=== PATIENT | female | born 1985 | race Caucasian/White ===

== ENCOUNTER 2018-04-05 10:54 | Emergency (ER) | payer OTHER ==
[~2018-04-05] VITALS: Ht 170.2 cm; Wt 63.5 kg
[~2018-04-05 10:54] MED LIST: ALBUTEROL2.5 MG/31 INH; CELEXA20 MG PO; COLACE100 MG PO; COUMADIN 4 MG TA4 M1 PO; CRUTCH1 EACH MC; DOXYCYCLINE 10100 M1 PO; ENOXAPARIN60 MG/0.1 SUBQ; HYDROCODONE-AP1 EAC6 PO; IBUPROFEN 800800 M1 PO; IUD; LEXAPRO20 MG PO; LIORESAL 10 MG10 MG PO; MEDROLDOSEPACK PO; NORCO 5-325 TA1 EACH PO; NUVARING VAGIN1 EACH VG; PERCOCET 5-3251 EACH PO; PHENERGAN 25 MG25 MG PO; ROBAXIN500 MG PO; SUMYCIN 500500 MG PO; ULTRAM 50MG TAB50 MG PO; ZOFRAN4 MG PO
[2018-04-05 11:32] LABS: ABSOLUTE LYMPHOCYTES 1.6 thou/uL (0.8-5.3); ABSOLUTE MONOCYTES 0.5 thou/uL (0.0-1.2); BASOPHILS 0.5 %; EOSINOPHILS 0.4 %; HEMATOCRIT 39.2 % (37.0-47.0); HEMOGLOBIN 13.3 gm/dL (12.0-15.0); MCH 32.6 pg (26.0-34.0); MCV 95.8 fL (80.0-100.0); MONOCYTES 8.6 %; MPV 10.6 fl. (7.2-11.1); NUCLEATED RBCS 0 /100WBC; PLATELET COUNT* 166 thou/uL (150-400); POLYS 64.5 %; RDW-CV 13.2 % (10.5-14.5); WBC 6.3 thou/uL (4.0-11.0)
[2018-04-05] MEDS ORDERED: SYNTHROID88 MCG PO (11:41)
[2018-04-05 11:49] LABS: INR 1.1; PROTIME 10.9 Seconds (9.20-11.50)
[2018-04-05] MEDS ORDERED: ONDANSETRON HCL4 M2 PO (12:03)
[2018-04-05] MEDS ORDERED: NABUMETONE 750750 M1 PO (12:03)
[2018-04-05 12:12] LABS: ALKALINE PHOSPHATASE 46 U/L (46-116); ANION GAP 11 mmol/L (7-16); CHLORIDE 106 mmol/L (98-107); CO2 24 mmol/L (21-32); POTASSIUM 3.7 mmol/L (3.5-5.1); SGOT 15 U/L (15-37); SGPT 21 U/L (30-65); SODIUM 141 mmol/L (136-145); TOTAL BILIRUBIN 0.6 mg/dL (<0.1-1.0); TOTAL PROTEIN 8.3 g/dL (6.4-8.2)
[2018-04-05 12:13] LABS: ALBUMIN 4.6 g/dL (3.4-5.0); TROPONIN-I LEVEL <0.06 ng/mL (<0.06)
[2018-04-05 12:19] LABS: BUN 12 mg/dL (7-18); CALCIUM 9.6 mg/dL (8.5-10.1); CREATININE 0.9 mg/dL (0.6-1.3); GLUCOSE 98 mg/dL (70-99)
[2018-04-05 13:07] LABS: URINE BILIRUBIN NEGATIVE (Negative); URINE BLOOD TRACE (Negative); URINE CLARITY CLEAR; URINE COLOR YELLOW; URINE GLUCOSE-RANDOM NEGATIVE (Negative); URINE KETONES 1+ (Negative); URINE LEUKOCYTES-REFLEX NEGATIVE (Negative); URINE NITRITE-REFLEX NEGATIVE (Negative); URINE PROTEIN NEGATIVE (Negative); URINE UROBILINOGEN 0.2 E.U./dl (0.2-1.0)
[2018-04-05 13:16] LABS: AMP/METHAMP Negative (Negative); BARBITURATES Negative (Negative); BENZODIAZEPINES Negative (Negative); COCAINE Negative (Negative); METHADONE Negative (Negative); OPIATES Negative (Negative); PCP Negative (Negative); THC POSITIVE (Negative)
[2018-04-05] MEDS ORDERED: ZANAFLEX4 MG PO (13:20)
[2018-04-05 13:42] VITALS: BP 136/80
--- NOTE | 2018-04-05 16:29 | EKG ---
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
== END 2018-04-05 13:43 | disposition home or self-care (01) ==
LOC: M.ERS 10:54
PROVIDERS: Nurse Practitioner Family
DX: S06.0X1A Concussion with loss of consciousness of 30 minutes or less, initial encounter (principal); S16.1XXA Strain of muscle, fascia and tendon at neck level, initial encounter; R42 Dizziness and giddiness; E03.9 Hypothyroidism, unspecified; Z88.1 Allergy status to other antibiotic agents; Z79.899 Other long term (current) drug therapy; Z88.2 Allergy status to sulfonamides; W18.39XA Other fall on same level, initial encounter; Y93.89 Activity, other specified; Y92.89 Other specified places as the place of occurrence of the external cause; Y99.8 Other external cause status